=== PATIENT | male | born 1990 | race Caucasian/White ===

== ENCOUNTER 2024-01-29 10:14 | Emergency (ER) | payer OTHER ==
[~2024-01-29] VITALS: Ht 180.3 cm; Wt 108.9 kg
[2024-01-29 11:58] LABS: BASOPHILS ABSOLUTE AUTO 0.03 K/mm3 (0.00-0.23); BASOPHILS PERCENT AUTO 0 % (0-2); EOSINOPHILS ABSOLUTE AUTO 0.08 K/mm3 (0.00-0.68); EOSINOPHILS PERCENT AUTO 1 % (0-6); Hematocrit 44.1 % (37.0-53.0); Hemoglobin 15.7 g/dL (13.5-17.5); IMMATURE GRAN ABSOLUTE AUTO 0.02 K/mm3 (0.00-0.10); IMMATURE GRAN PERCENT AUTO 0 % (0-1); LYMPHOCYTES ABSOLUTE AUTO 2.58 K/mm3 (0.84-5.20); LYMPHOCYTES PERCENT AUTO 36 % (21-46); MONOCYTES ABSOLUTE AUTO 0.46 K/mm3 (0.16-1.47); MONOCYTES PERCENT AUTO 7 % (4-13); Mean Corpuscular HGB 28.8 pg (26.0-34.0); Mean Corpuscular HGB Conc 35.6 g/dL (31.5-36.5); Mean Corpuscular Volume 81 fL (80-100); Mean Platelet Volume 9.3 fL (9.1-12.4); NEUTROPHILS ABSOLUTE AUTO 3.94 K/mm3 (1.96-9.15); NEUTROPHILS PERCENT AUTO 55 % (41-73); Platelet Count 302 K/mm3 (150-400); RDW Standard Deviation 34.5 fL (35.1-46.3); Red Blood Cell Count 5.45 M/mm3 (4.30-5.90); White Blood Cell Count 7.11 K/mm3 (4.00-11.30)
[2024-01-29 12:18] LABS: Albumin/Globulin Ratio 1.1 (0.8-1.8); Bilirubin, Total 0.5 mg/dL (0.1-1.0); Bun/Creatinine Ratio 10.8 (12.0-20.0); Calcium, Blood 9.1 mg/dL (8.5-10.1); Creatinine, Blood 0.65 mg/dL (0.60-1.20); Globulin, Blood 3.8 g/dL (2.2-4.0); Total Protein, Blood 7.8 g/dL (6.4-8.2)
[2024-01-29] MEDS ORDERED: Labetalol HCL 5 MG/ML 4ML Injection (Single Dose) IV ONE (15:15)
[2024-01-29] MEDS ORDERED: HydroCHLOROthiazide 25 mg Tab PO ONE (15:20)
[2024-01-29] MEDS ORDERED: AmLODIPine Besylate 5 MG Tab PO ONE (15:55)
[2024-01-29] MEDS ORDERED: Norvasc5 MG PO (16:54)
[2024-01-29] MEDS ORDERED: Hydrochloroth12.5 MG PO (16:54)
== END 2024-01-29 17:17 | disposition home or self-care (01) ==
LOC: ER 10:14
PROVIDERS: Physician Assistant
DX: I10 Essential (primary) hypertension (principal); F17.290 Nicotine dependence, other tobacco product, uncomplicated
CPT/HCPCS: 80053; 83690; 85025; 93005; 93010; 96374; 99283-25; A9270

== ENCOUNTER → 2024-07-14 | Outpatient (CLI) | payer OTHER ==
[~2024-07-14] MED LIST: Hydrochloroth12.5 MG PO; Norvasc5 MG PO; QUET200 PO; SERT100 PO
[2024-07-15 18:23] LABS: Microalb/Creat Ratio UR, Rand 15.772 mg/g (0.000-30.000); Microalbumin, Random Urine 19.4 mg/L (0.000-20.000)
== END | disposition home or self-care (01) ==
LOC: LAB 16:50 → LAB SHORT 16:50
PROVIDERS: Physician Assistant
DX: E11.65 Type 2 diabetes mellitus with hyperglycemia (principal)
CPT/HCPCS: 82043; 82570

== ENCOUNTER → 2025-07-15 | Outpatient (CLI) | payer OTHER | LOC: LAB 10:07 → LAB SHORT 10:07 | DX: L03.011 Cellulitis of right finger (principal) | CPT/HCPCS: 87070; 87075; 87077; 87186; 87205 ==